=== PATIENT | female | born 1970 | race Hispanic/Latino ===

== ENCOUNTER 2020-09-17 08:51 | Inpatient (IN) | payer MEDICAID ==
[2020-09-17 14:19] LABS: Alanine Aminotransferase 22 units/L (7-56); Albumin 3.9 g/dL (3.9-5); BUN/Creatinine Ratio 13; Blood Urea Nitrogen 9 mg/dL (7-17); Calcium 8.1 mg/dL (8.4-10.2); Chol/HDL Ratio 2.47 %; HDL Cholesterol 65 mg/dL (40-59); Hemolysis Index 7; LDL Cholesterol,Direct 91 mg/dL (50-130)
[2020-09-17 14:24] LABS: Basophils # (Auto) 0.1 K/mm3 (0.0-0.1); Basophils % (Auto) 1.2 % (0.0-1.8); Eosinophils # (Auto) 0.1 K/mm3 (0.0-0.4); Eosinophils % (Auto) 1.4 % (0.0-4.3); Hematocrit 38.9 % (30.3-42.9); Hemoglobin 13.1 gm/dl (10.1-14.3); Lymphocytes # (Auto) 1.8 K/mm3 (1.2-5.4); Lymphocytes % (Auto) 29.3 % (13.4-35.0); Mean Corpuscular HGB Conc 34 % (30-34); Mean Corpuscular Volume 96 fl (79-97); Monocytes # (Auto) 0.4 K/mm3 (0.0-0.8); Platelet Count 180 K/mm3 (140-440); Red Blood Count 4.06 M/mm3 (3.65-5.03); Red Cell Distribution Width 13.4 % (13.2-15.2)
[2020-09-17] MEDS: ALPRAZolam 1 MG TAB PO PRN ×2 (16:53→21:03)
[2020-09-17] MEDS ORDERED: FLU VACC QUAD 2020-2021 (6 months +)/PF 60 0.5 ML SYRINGE IM ONE (17:38)
[2020-09-17] MEDS: GABAPENTIN 300 MG CAP PO SCH ×2 (17:52→21:02)
[2020-09-17] MEDS ORDERED: IPRATROPIUM/ALBUTEROL SULFATE 3 ML AMPUL.NEB IH SCH (18:00)
[2020-09-17] MEDS: DIVALPROEX SPRINKLE 125 MG CAP PO SCH (21:02)
[2020-09-17] MEDS: busPIRone 10 MG TAB PO SCH (21:02)
[2020-09-17] MEDS: traZODone 50 MG TAB PO SCH (21:02)
[2020-09-17] MEDS: levETIRAcetam 500 MG TAB PO SCH (21:03)
[2020-09-17] MEDS: metFORMIN 500 MG TAB PO SCH (21:06)
[2020-09-17] MEDS ORDERED: LURASIDONE HCL 80 MG PO SCH (22:00)
[2020-09-18] MEDS: ALPRAZolam 1 MG TAB PO PRN ×3 (02:48→20:22)
--- NOTE | 2020-09-18 08:37 | History and Physical Report ---
GP History & Physical - History of Present Illness Date of admission: 09/17/20 Date of Examination: 09/18/20 Reason for Admission: Failure of Outpatient Treatment, Severe anxiety/depression History of Present Illness: Per nurse note: Super anxious, paranoid, auditory hallucination, was not taking home meds Withdrawing from Methamphetamine Vonnie Sabillon is a 50y/o female patient who states she was admitted because she had been off her meds. The patient says she was paranoid and hallucinating. During my visit with her today, the patient is very anxious. She is rocking back and forth, rubbing her face and crying. She says almost a year ago her son was killed in a MVC. She say "it's so hard for me to deal with." She also says she lost her sister. The patient denies SI/HI, but verbalizes being "severely depressed and very anxious." The patient also says she feels paranoid. The patient says she has a history of "bipolar, schizophrenia, and PTSD." She is verbalizes hearing "a bunch of stuff I can't make out." She also says she sees things, "they are blurry." The patient admits to using methamphetamines. She also says she smokes 2 packs of cigarets a day. She says she quit using alcohol in June. Psychiatric History Diagnoses: Bipolar, PTSD, Schizophrenia Suicidal attempts: Yes Psych admissions: Yes Medications tried: xanax Substance abuse: Methamphetamines Outpatient care: yes Medical history: None reported Family psych history: None reported Social History Marital status: Living arrangements: Alone Highest education: high school Legal history: Denies Employment status: Disabled REVIEW OF SYSTEMS Constitutional: Negative for weight loss ENT: Negative for stridor Respiratory: Negative for cough or hemoptysis All other systems reviewed and are negative MENTAL STATUS EXAMINATION General Appearance and Behavior: Age appropriate, good hygiene, wearing appropriate clothes, good eye contact, very anxious Cooperation: Participating/engaged, but Guarded Psychomotor Behavior: Psychomotor normal Mood:"severely depressed and very anxious" Affect and affective range: congruent with mood. Thought Process: Goal directed Thought Content: hopelessness, helplessness, hallucinations Speech: Normal rate, volume and rhythm Intellectual Functioning: Average Suicidal Ideation: Denies Homicidal Ideation: Denies Hallucinations: A/V Delusions: None elicited Impulse Control: Impaired Insight and Judgment: Limited insight and judgment Memory: Normal Attention: Normal Orientation: Alert, oriented. Assessment and Plan (1) Bipolar Disorder Current Visit: Yes Status: Acute Treatment Plan Patient admitted for inpatient psychiatric evaluation, medication adjustment and close monitoring The patient's behavior, mood, sleep and appetite will be closely monitored. Patient enrolled in individual and group therapeutic sessions and encouraged to attend. Patient provided with a safe and structured environment. Patient's physical health needs will be addressed by the Hospitalist. Hospitalist Consulted Labs including CBC, CMP, Lipid profile and Hemoglobin A1C levels ordered for baseline reference Social Assessment will be completed and the Sueding Machine Operator will work with patient and family to ensure a suitable and safe disposition Medication adjustment will be made as clinically indicated Continued home medications Started Risperidone 0.25mg po BID (the hospital does not have latuda) Usual Wellness Hindu/Preservation: - Start Trazodone 50 mg po QHS & 50 mg po QHS PRN between 10 PM & 2 AM for insomnia - Start Melatonin 5 mg po QHS to promote circadian rhythm - Start Waterloo-3 for brain health, reduce impulsivity, and as adjunctive treatment for mood disorder, continue upon discharge given overall benefits. - Start B1 prophylaxis with 200 mg po for 5 days The patient agreed on the treatment plan, understood the risk, benefit, alternative treatment, potential consequence of no treatment, and gave informed consent. Estimated days: 7 Post hospital care: primary care provider, psychiatric provider Legal Status: Voluntary Reaction to Hospitalization: Accepting Medications and Allergies Allergies Allergy/AdvReac Type Severity Reaction Status Date / Time No Known Allergies Allergy Verified 09/17/20 13:05 Home Medications Medication Instructions Recorded Confirmed Last Taken Type Metformin HCl [Glucophage] 500 mg PO BID 05/30/18 09/17/20 Unknown History levETIRAcetam [Keppra TAB] 500 mg PO BID #60 tablet 05/30/18 09/17/20 Unknown Rx ALPRAZolam [Xanax TAB] 1 mg PO QID PRN 09/17/20 09/17/20 Unknown History Divalproex Sprinkle [DepaKOTE 250 mg PO TID 09/17/20 09/17/20 Unknown History SPRINKLE] Folic Acid [Folvite] 1 mg PO QDAY 09/17/20 09/17/20 Unknown History Gabapentin 300 mg PO QID 09/17/20 09/17/20 Unknown History Ipratropium/Albuter (Nf) 2 puff IH QID 09/17/20 09/17/20 Unknown History [Combivent (Nf)] Lurasidone HCl [Latuda] 80 mg PO BID 09/17/20 09/17/20 Unknown History Nicotine [Habitrol] 14 gm TRANSDERMA DAILY MDD Smoker 09/17/20 09/17/20 09/17/20 History busPIRone [Buspar] 10 mg PO TID 09/17/20 09/17/20 Unknown History traZODone [Desyrel] 50 mg PO QHS 09/17/20 09/17/20 Unknown History Active Meds: Active Medications Albuterol/Ipratropium (Ipratropium/Albuterol Sulfate 3 Ml Ampul.Neb) 1 ampul IH QID [facility] Alprazolam (Alprazolam 1 Mg Tab) 1 mg PO QID PRN PRN Reason: Anxiety Last Admin: 09/18/20 02:48 Dose: 1 mg Documented by: Buspirone HCl (Buspirone 10 Mg Tab) 10 mg PO TID [facility] Last Admin: 09/17/20 21:02 Dose: 10 mg Documented by: Divalproex Sodium (Divalproex Sprinkle 125 Mg Cap) 250 mg PO TID [facility] Last Admin: 09/17/20 21:02 Dose: 250 mg Documented by: Folic Acid (Folic Acid 1 Mg Tab) 1 mg PO QDAY [facility] Gabapentin (Gabapentin 300 Mg Cap) 300 mg PO QID [facility] Last Admin: 09/17/20 21:02 Dose: 300 mg Documented by: Levetiracetam (Levetiracetam 500 Mg Tab) 500 mg PO BID [facility] Last Admin: 09/17/20 21:03 Dose: 500 mg Documented by: Metformin HCl (Metformin 500 Mg Tab) 500 mg PO BID [facility] Last Admin: 09/17/20 21:06 Dose: 500 mg Documented by: Miscellaneous Medication (Lurasidone Hcl [Latuda]) 80 mg PO BID [facility] Nicotine (Nicotine 14 Mg/24 Hr Patch) 14 mg TD DAILY [facility] Trazodone HCl (Trazodone 50 Mg Tab) 50 mg PO QHS [facility] Last Admin: 09/17/20 21:02 Dose: 50 mg Documented by: Results - Results Labs/Vitals: Laboratory Last Values WBC 6.0 K/mm3 (4.5-11.0) 09/17/20 13:28 RBC 4.06 M/mm3 (3.65-5.03) 09/17/20 13:28 Hgb 13.1 gm/dl (10.1-14.3) 09/17/20 13:28 Hct 38.9 % (30.3-42.9) 09/17/20 13:28 MCV 96 fl (79-97) 09/17/20 13:28 MCH 32 pg (28-32) 09/17/20 13:28 MCHC 34 % (30-34) 09/17/20 13:28 RDW 13.4 % (13.2-15.2) 09/17/20 13:28 Plt Count 180 K/mm3 (140-440) 09/17/20 13:28 Lymph % (Auto) 29.3 % (13.4-35.0) 09/17/20 13:28 Reeves % (Auto) 7.0 % (0.0-7.3) 09/17/20 13:28 Eos % (Auto) 1.4 % (0.0-4.3) 09/17/20 13:28 Baso % (Auto) 1.2 % (0.0-1.8) 09/17/20 13:28 Lymph # (Auto) 1.8 K/mm3 (1.2-5.4) 09/17/20 13:28 Reeves # (Auto) 0.4 K/mm3 (0.0-0.8) 09/17/20 13:28 Eos # (Auto) 0.1 K/mm3 (0.0-0.4) 09/17/20 13:28 Baso # (Auto) 0.1 K/mm3 (0.0-0.1) 09/17/20 13:28 Seg Neutrophils % 61.1 % (40.0-70.0) 09/17/20 13:28 Seg Neutrophils # 3.7 K/mm3 (1.8-7.7) 09/17/20 13:28 Sodium 141 mmol/L (137-145) 09/17/20 13:28 Potassium 4.2 mmol/L (3.6-5.0) 09/17/20 13:28 Chloride 111.3 mmol/L (98-107) H 09/17/20 13:28 Carbon Dioxide 23 mmol/L (22-30) 09/17/20 13:28 Anion Gap 11 mmol/L 09/17/20 13:28 BUN 9 mg/dL (7-17) 09/17/20 13:28 Creatinine 0.7 mg/dL (0.6-1.2) 09/17/20 13:28 Estimated GFR > 60 ml/min 09/17/20 13:28 BUN/Creatinine Ratio 13 % 09/17/20 13:28 Glucose 82 mg/dL (65-100) 09/17/20 13:28 POC Glucose 81 mg/dL (70-105) 09/17/20 13:35 Hemoglobin A1c 5.8 % (4-6) 09/17/20 13:28 Calcium 8.1 mg/dL (8.4-10.2) L 09/17/20 13:28 Total Bilirubin 0.30 mg/dL (0.1-1.2) 09/17/20 13:28 AST 38 units/L (5-40) 09/17/20 13:28 ALT 22 units/L (7-56) 09/17/20 13:28 Alkaline Phosphatase 69 units/L (35-129) 09/17/20 13:28 Total Protein 6.3 g/dL (6.3-8.2) 09/17/20 13:28 Albumin 3.9 g/dL (3.9-5) 09/17/20 13:28 Albumin/Globulin Ratio 1.6 % 09/17/20 13:28 Triglycerides 135 mg/dL (2-149) 09/17/20 13:28 Cholesterol 161 mg/dL (50-199) 09/17/20 13:28 LDL Cholesterol Direct 91 mg/dL (50-130) 09/17/20 13:28 HDL Cholesterol 65 mg/dL (40-59) H 09/17/20 13:28 Cholesterol/HDL Ratio 2.47 % 09/17/20 13:28 TSH 0.588 mlU/mL (0.270-4.200) 09/17/20 13:28 Last Vital Signs Temp 97.9 F 09/17/20 22:00 Pulse 72 09/17/20 22:00 Resp 15 09/17/20 22:00 BP 144/113 09/17/20 22:00 Pulse Ox 97 09/17/20 22:00 Physical Examination - Constitutional Vitals: Vital Signs Temp Pulse Resp BP Pulse Ox 97.9 F 72 15 144/113 97 09/17/20 22:00 09/17/20 22:00 09/17/20 22:00 09/17/20 22:00 09/17/20 22:00 Temperature -Last 24 Hours Temperature 97.9 F Mental Status Exam - Vital signs Last Vital Signs Temp 97.9 F 09/17/20 22:00 Pulse 72 09/17/20 22:00 Resp 15 09/17/20 22:00 BP 144/113 09/17/20 22:00 Pulse Ox 97 09/17/20 22:00 Physician Certification - Certification Statement Physician Certification Statement: This is an acknowledgement statement that VONNIE SABILLON is a 50 year old F who requires inpatient psychiatric admission for treatment which could reasonably be expected to improve the patient's condition for Estimated period of time patient will need to remain in the hospital: [ ] Plan for post-hospital care: [ ]
[2020-09-18] MEDS: GABAPENTIN 300 MG CAP PO SCH ×4 (09:38→21:01)
[2020-09-18] MEDS: DIVALPROEX SPRINKLE 125 MG CAP PO SCH ×3 (09:38→20:23)
[2020-09-18] MEDS: levETIRAcetam 500 MG TAB PO SCH ×2 (09:38→21:01)
[2020-09-18] MEDS: FOLIC ACID 1 MG TAB PO SCH (09:39)
[2020-09-18] MEDS: NICOTINE 21 MG/24 HR PATCH TD SCH (09:39)
[2020-09-18] MEDS: metFORMIN 500 MG TAB PO SCH ×2 (09:39→21:01)
[2020-09-18] MEDS: busPIRone 10 MG TAB PO SCH ×3 (09:39→20:23)
[2020-09-18] MEDS ORDERED: NICOTINE 14 MG/24 HR PATCH TD SCH (10:00)
[2020-09-18] MEDS: risperiDONE 0.25 MG TAB PO SCH ×2 (12:58→21:01)
[2020-09-18 19:29] LABS: Bilirubin,Urine NEG (Negative); Blood,Urine NEG (Negative); Color,Urine Straw (Yellow); Protein,Urine <15 mg/dL mg/dL (Negative); Urobilinogen,Urine < 2.0 mg/dL (<2.0)
[2020-09-18] MEDS: traZODone 50 MG TAB PO SCH (21:01)
[2020-09-19] MEDS: ALPRAZolam 1 MG TAB PO PRN ×3 (04:54→21:29)
--- NOTE | 2020-09-19 07:44 | Consultation ---
History of Present Illness - Reason for Consult Consult date: 09/18/20 Medical management Requesting physician: BRAD MARIE - History of Present Illness Patricia Sabillon is a 50y/o female patient who states she was admitted because she had been off her meds. The patient says she was paranoid and hallucinating. During my visit with her today, the patient is very anxious. She is rocking back and forth, rubbing her face and crying. She says almost a year ago her son was killed in a MVC. She say "it's so hard for me to deal with." She also says she lost her sister. The patient denies SI/HI, but verbalizes being "severely depressed and very anxious." The patient also says she feels paranoid. The patient says she has a history of "bipolar, schizophrenia, and PTSD." She is verbalizes hearing "a bunch of stuff I can't make out." She also says she sees things, "they are blurry." The patient admits to using methamphetamines. She also says she smokes 2 packs of cigarets a day. She says she quit using alcohol in June. Psychiatric History Diagnoses: Bipolar, PTSD, Schizophrenia Suicidal attempts: Yes Psych admissions: Yes Medications tried: xanax Substance abuse: Methamphetamines Outpatient care: yes Medical history: COPD Family psych history: None reported Social History Marital status: Living arrangements: Alone Highest education: high school Legal history: Denies Employment status: Disabled REVIEW OF SYSTEMS Constitutional: Negative for weight loss ENT: Negative for stridor Respiratory: Negative for cough or hemoptysis All other systems reviewed and are negative Medications and Allergies Allergies Allergy/AdvReac Type Severity Reaction Status Date / Time No Known Allergies Allergy Verified 09/17/20 13:05 Home Medications Medication Instructions Recorded Confirmed Last Taken Type Metformin HCl [Glucophage] 500 mg PO BID 05/30/18 09/17/20 Unknown History levETIRAcetam [Keppra TAB] 500 mg PO BID #60 tablet 05/30/18 09/17/20 Unknown Rx ALPRAZolam [Xanax TAB] 1 mg PO QID PRN 09/17/20 09/17/20 Unknown History Divalproex Sprinkle [DepaKOTE 250 mg PO TID 09/17/20 09/17/20 Unknown History SPRINKLE] Folic Acid [Folvite] 1 mg PO QDAY 09/17/20 09/17/20 Unknown History Gabapentin 300 mg PO QID 09/17/20 09/17/20 Unknown History Ipratropium/Albuter (Nf) 2 puff IH QID 09/17/20 09/17/20 Unknown History [Combivent (Nf)] Lurasidone HCl [Latuda] 80 mg PO BID 09/17/20 09/17/20 Unknown History Nicotine [Habitrol] 14 gm TRANSDERMA DAILY MDD Smoker 09/17/20 09/17/20 09/17/20 History busPIRone [Buspar] 10 mg PO TID 09/17/20 09/17/20 Unknown History traZODone [Desyrel] 50 mg PO QHS 09/17/20 09/17/20 Unknown History Active Meds: Active Medications Albuterol/Ipratropium (Ipratropium/Albuterol Sulfate 3 Ml Ampul.Neb) 1 ampul IH QID [facility] Alprazolam (Alprazolam 1 Mg Tab) 1 mg PO QID PRN PRN Reason: Anxiety Last Admin: 09/19/20 04:54 Dose: 1 mg Documented by: Buspirone HCl (Buspirone 10 Mg Tab) 10 mg PO TID [facility] Last Admin: 09/18/20 20:23 Dose: 10 mg Documented by: Divalproex Sodium (Divalproex Sprinkle 125 Mg Cap) 250 mg PO TID [facility] Last Admin: 09/18/20 20:23 Dose: 250 mg Documented by: Folic Acid (Folic Acid 1 Mg Tab) 1 mg PO QDAY [facility] Last Admin: 09/18/20 09:39 Dose: 1 mg Documented by: Gabapentin (Gabapentin 300 Mg Cap) 300 mg PO QID [facility] Last Admin: 09/18/20 21:01 Dose: 300 mg Documented by: Levetiracetam (Levetiracetam 500 Mg Tab) 500 mg PO BID [facility] Last Admin: 09/18/20 21:01 Dose: 500 mg Documented by: Metformin HCl (Metformin 500 Mg Tab) 500 mg PO BIDDIAB [facility] Miscellaneous Medication (Lurasidone Hcl [Latuda]) 80 mg PO BID [facility] Nicotine (Nicotine 21 Mg/24 Hr Patch) 21 mg TD QDAY [facility] Last Admin: 09/18/20 09:39 Dose: 21 mg Documented by: Risperidone (Risperidone 0.25 Mg Tab) 0.25 mg PO BID [facility] Last Admin: 09/18/20 21:01 Dose: 0.25 mg Documented by: Trazodone HCl (Trazodone 50 Mg Tab) 50 mg PO QHS [facility] Last Admin: 09/18/20 21:01 Dose: 50 mg Documented by: Exam - Constitutional Vitals: Temp Pulse Resp BP Pulse Ox 98.1 F 79 15 125/77 96 09/18/20 21:00 09/18/20 21:00 09/18/20 21:00 09/18/20 21:00 09/18/20 21:00 General appearance: Present: no acute distress, well-nourished - EENT Eyes: Present: PERRL ENT: hearing intact, clear oral mucosa - Neck Neck: Present: supple, normal ROM - Respiratory Respiratory effort: normal Respiratory: bilateral: CTA - Cardiovascular Heart rate: 78 Rhythm: regular Heart Sounds: Present: S1 & S2. Absent: rub, click - Extremities Extremities: no ischemia, pulses intact, pulses symmetrical, No edema Peripheral Pulses: within normal limits - Abdominal General gastrointestinal: Present: soft, non-tender, non-distended, normal bowel sounds Female genitourinary: Present: normal - Integumentary Integumentary: Present: clear, warm, dry - Musculoskeletal Musculoskeletal: gait normal, strength equal bilaterally - Psychiatric Psychiatric: appropriate mood/affect, intact judgment & insight - Neurologic Neurologic: CNII-XII intact, moves all extremities Results - Labs CBC & Chem 7: 09/17/20 13:28 09/17/20 13:28 Labs: Abnormal lab results 09/18/20 Range/Units 07:33 POC Glucose 110 H (70-105) mg/dL Assessment and Plan - Patient Problems (1) COPD (chronic obstructive pulmonary disease) Current Visit: Yes Status: Chronic Qualifiers: COPD type: chronic bronchitis Plan to address problem: Ventolin inhaler 2 puffs 4 times daily as needed (2) Nicotine dependence Current Visit: Yes Status: Chronic Qualifiers: Nicotine product type: cigarettes Plan to address problem: Patient counseled about smoking cessation NicoDerm patch initiated (3) DVT prophylaxis Current Visit: Yes Status: Acute Plan to address problem: Heparin 5000 every 12 and GI prophylaxis
[2020-09-19] MEDS ORDERED: ALBUTEROL 8.5 GM MDI INHALATION IH PRN (07:53)
[2020-09-19] MEDS ORDERED: ALBUTEROL 2.5 MG/3 ML NEBU IH PRN ×2 (09:00→11:29)
[2020-09-19] MEDS: DIVALPROEX SPRINKLE 125 MG CAP PO SCH ×3 (09:19→20:46)
[2020-09-19] MEDS: levETIRAcetam 500 MG TAB PO SCH ×2 (09:20→21:30)
[2020-09-19] MEDS: busPIRone 10 MG TAB PO SCH ×3 (09:20→20:45)
[2020-09-19] MEDS: FOLIC ACID 1 MG TAB PO SCH (09:20)
[2020-09-19] MEDS: NICOTINE 21 MG/24 HR PATCH TD SCH (09:20)
[2020-09-19] MEDS: metFORMIN 500 MG TAB PO SCH ×2 (09:21→17:48)
[2020-09-19] MEDS: GABAPENTIN 300 MG CAP PO SCH ×4 (09:21→21:30)
[2020-09-19] MEDS: HEPARIN 5,000 UNIT/1 ML VIAL SUB-Q SCH ×2 (09:21→21:30)
[2020-09-19] MEDS: risperiDONE 0.25 MG TAB PO SCH ×2 (09:21→21:30)
--- NOTE | 2020-09-19 10:22 | Progress Note ---
Subjective Date of service: 09/19/20 Principal diagnosis: Bipolar Disorder Subjective Comment: The patient was seen today. She is very anxious. She is asking why her anxiety medication was decreased. Informed the patient that her medication was not decreased. She says that's what was told to her. She says my anxiety is "my biggest problem. When I get sick that starts my mind to racing." The patient denies SI/HI or hallucinations of any kind. She says "it's when I get really anxious." REVIEW OF SYSTEMS Constitutional: Negative for weight loss ENT: Negative for stridor Respiratory: Negative for cough or hemoptysis All other systems reviewed and are negative MENTAL STATUS EXAMINATION General Appearance and Behavior: Age appropriate, good hygiene, wearing appropriate clothes, good eye contact, very anxious Cooperation: Participating/engaged, but Guarded Psychomotor Behavior: Psychomotor normal Mood:"severely depressed and very anxious" Affect and affective range: congruent with mood. Thought Process: Goal directed Thought Content: hopelessness, helplessness, hallucinations Speech: Normal rate, volume and rhythm Intellectual Functioning: Average Suicidal Ideation: Denies Homicidal Ideation: Denies Hallucinations: A/V Delusions: None elicited Impulse Control: Impaired Insight and Judgment: Limited insight and judgment Memory: Normal Attention: Normal Orientation: Alert, oriented. Assessment and Plan (1) Bipolar Disorder (2) Generalized Anxiety Disorder Current Visit: Yes Status: Acute Treatment Plan Patient admitted for inpatient psychiatric evaluation, medication adjustment and close monitoring The patient's behavior, mood, sleep and appetite will be closely monitored. Patient enrolled in individual and group therapeutic sessions and encouraged to attend. Patient provided with a safe and structured environment. Patient's physical health needs will be addressed by the Hospitalist. Hospitalist Consulted Labs including CBC, CMP, Lipid profile and Hemoglobin A1C levels ordered for baseline reference Social Assessment will be completed and the Beef Grinder will work with patient and family to ensure a suitable and safe disposition Medication adjustment will be made as clinically indicated Increased Busar 15mg po TID Usual Wellness Sabianism/Preservation: - Start Trazodone 50 mg po QHS & 50 mg po QHS PRN between 10 PM & 2 AM for insomnia - Start Melatonin 5 mg po QHS to promote circadian rhythm - Start [place]-3 for brain health, reduce impulsivity, and as adjunctive treatment for mood disorder, continue upon discharge given overall benefits. - Start B1 prophylaxis with 200 mg po for 5 days The patient agreed on the treatment plan, understood the risk, benefit, alternative treatment, potential consequence of no treatment, and gave informed consent. Estimated days: 2 Post hospital care: primary care provider, psychiatric provider Medications and Allergies Allergies Allergy/AdvReac Type Severity Reaction Status Date / Time No Known Allergies Allergy Verified 09/17/20 13:05 Home Medications Medication Instructions Recorded Confirmed Last Taken Type Metformin HCl [Glucophage] 500 mg PO BID 05/30/18 09/17/20 Unknown History levETIRAcetam [Keppra TAB] 500 mg PO BID #60 tablet 05/30/18 09/17/20 Unknown Rx ALPRAZolam [Xanax TAB] 1 mg PO QID PRN 09/17/20 09/17/20 Unknown History Divalproex Sprinkle [DepaKOTE 250 mg PO TID 09/17/20 09/17/20 Unknown History SPRINKLE] Folic Acid [Folvite] 1 mg PO QDAY 09/17/20 09/17/20 Unknown History Gabapentin 300 mg PO QID 09/17/20 09/17/20 Unknown History Ipratropium/Albuter (Nf) 2 puff IH QID 09/17/20 09/17/20 Unknown History [Combivent (Nf)] Lurasidone HCl [Latuda] 80 mg PO BID 09/17/20 09/17/20 Unknown History Nicotine [Habitrol] 14 gm TRANSDERMA DAILY MDD Smoker 09/17/20 09/17/20 09/17/20 History busPIRone [Buspar] 10 mg PO TID 09/17/20 09/17/20 Unknown History traZODone [Desyrel] 50 mg PO QHS 09/17/20 09/17/20 Unknown History Active Meds: Active Medications Albuterol (Albuterol 2.5 Mg/3 Ml Nebu) 2.5 mg IH Q4HRT PRN PRN Reason: Shortness Of Breath Albuterol/Ipratropium (Ipratropium/Albuterol Sulfate 3 Ml Ampul.Neb) 1 ampul IH QID [facility]AVI Alprazolam (Alprazolam 1 Mg Tab) 1 mg PO QID PRN PRN Reason: Anxiety Last Admin: 09/19/20 04:54 Dose: 1 mg Documented by: Buspirone HCl (Buspirone 10 Mg Tab) 10 mg PO TID [facility] Last Admin: 09/19/20 09:20 Dose: 10 mg Documented by: Divalproex Sodium (Divalproex Sprinkle 125 Mg Cap) 250 mg PO TID [facility] Last Admin: 09/19/20 09:19 Dose: 250 mg Documented by: Folic Acid (Folic Acid 1 Mg Tab) 1 mg PO QDAY [facility] Last Admin: 09/19/20 09:20 Dose: 1 mg Documented by: Gabapentin (Gabapentin 300 Mg Cap) 300 mg PO QID [facility] Last Admin: 09/19/20 09:21 Dose: 300 mg Documented by: Heparin Sodium (Porcine) (Heparin 5,000 Unit/1 Ml Vial) 5,000 unit SUB-Q Q12HR [facility] Last Admin: 09/19/20 09:21 Dose: 5,000 unit Documented by: Levetiracetam (Levetiracetam 500 Mg Tab) 500 mg PO BID [facility] Last Admin: 09/19/20 09:20 Dose: 500 mg Documented by: Metformin HCl (Metformin 500 Mg Tab) 500 mg PO BIDDIAB [facility] Last Admin: 09/19/20 09:21 Dose: 500 mg Documented by: Miscellaneous Medication (Lurasidone Hcl [Latuda]) 80 mg PO BID [facility] Nicotine (Nicotine 21 Mg/24 Hr Patch) 21 mg TD QDAY [facility] Last Admin: 09/19/20 09:20 Dose: 21 mg Documented by: Risperidone (Risperidone 0.25 Mg Tab) 0.25 mg PO BID [facility] Last Admin: 09/19/20 09:21 Dose: 0.25 mg Documented by: Trazodone HCl (Trazodone 50 Mg Tab) 50 mg PO QHS [facility] Last Admin: 09/18/20 21:01 Dose: 50 mg Documented by: Results - Results Labs/Vitals: Laboratory Last Values WBC 6.0 K/mm3 (4.5-11.0) 09/17/20 13:28 RBC 4.06 M/mm3 (3.65-5.03) 09/17/20 13:28 Hgb 13.1 gm/dl (10.1-14.3) 09/17/20 13:28 Hct 38.9 % (30.3-42.9) 09/17/20 13:28 MCV 96 fl (79-97) 09/17/20 13:28 MCH 32 pg (28-32) 09/17/20 13:28 MCHC 34 % (30-34) 09/17/20 13:28 RDW 13.4 % (13.2-15.2) 09/17/20 13:28 Plt Count 180 K/mm3 (140-440) 09/17/20 13:28 Lymph % (Auto) 29.3 % (13.4-35.0) 09/17/20 13:28 [place] % (Auto) 7.0 % (0.0-7.3) 09/17/20 13:28 Eos % (Auto) 1.4 % (0.0-4.3) 09/17/20 13:28 Baso % (Auto) 1.2 % (0.0-1.8) 09/17/20 13:28 Lymph # (Auto) 1.8 K/mm3 (1.2-5.4) 09/17/20 13:28 [place] # (Auto) 0.4 K/mm3 (0.0-0.8) 09/17/20 13:28 Eos # (Auto) 0.1 K/mm3 (0.0-0.4) 09/17/20 13:28 Baso # (Auto) 0.1 K/mm3 (0.0-0.1) 09/17/20 13:28 Seg Neutrophils % 61.1 % (40.0-70.0) 09/17/20 13:28 Seg Neutrophils # 3.7 K/mm3 (1.8-7.7) 09/17/20 13:28 Sodium 141 mmol/L (137-145) 09/17/20 13:28 Potassium 4.2 mmol/L (3.6-5.0) 09/17/20 13:28 Chloride 111.3 mmol/L (98-107) H 09/17/20 13:28 Carbon Dioxide 23 mmol/L (22-30) 09/17/20 13:28 Anion Gap 11 mmol/L 09/17/20 13:28 BUN 9 mg/dL (7-17) 09/17/20 13:28 Creatinine 0.7 mg/dL (0.6-1.2) 09/17/20 13:28 Estimated GFR > 60 ml/min 09/17/20 13:28 BUN/Creatinine Ratio 13 % 09/17/20 13:28 Glucose 82 mg/dL (65-100) 09/17/20 13:28 POC Glucose 114 mg/dL (70-105) H 09/19/20 06:32 Hemoglobin A1c 5.8 % (4-6) 09/17/20 13:28 Calcium 8.1 mg/dL (8.4-10.2) L 09/17/20 13:28 Total Bilirubin 0.30 mg/dL (0.1-1.2) 09/17/20 13:28 AST 38 units/L (5-40) 09/17/20 13:28 ALT 22 units/L (7-56) 09/17/20 13:28 Alkaline Phosphatase 69 units/L (35-129) 09/17/20 13:28 Total Protein 6.3 g/dL (6.3-8.2) 09/17/20 13:28 Albumin 3.9 g/dL (3.9-5) 09/17/20 13:28 Albumin/Globulin Ratio 1.6 % 09/17/20 13:28 Triglycerides 135 mg/dL (2-149) 09/17/20 13:28 Cholesterol 161 mg/dL (50-199) 09/17/20 13:28 LDL Cholesterol Direct 91 mg/dL (50-130) 09/17/20 13:28 HDL Cholesterol 65 mg/dL (40-59) H 09/17/20 13:28 Cholesterol/HDL Ratio 2.47 % 09/17/20 13:28 TSH 0.588 mlU/mL (0.270-4.200) 09/17/20 13:28 Urine Color Straw (Yellow) 09/18/20 09:10 Urine Turbidity Clear (Clear) 09/18/20 09:10 Urine pH 6.0 (5.0-7.0) 09/18/20 09:10 Ur Specific [place] 1.008 (1.003-1.030) 09/18/20 09:10 Urine Protein <15 mg/dl mg/dL (Negative) 09/18/20 09:10 Urine Glucose (UA) Neg mg/dL (Negative) 09/18/20 09:10 Urine Ketones Neg mg/dL (Negative) 09/18/20 09:10 Urine Blood Neg (Negative) 09/18/20 09:10 Urine Nitrite Neg (Negative) 09/18/20 09:10 Urine Bilirubin Neg (Negative) 09/18/20 09:10 Urine Urobilinogen < 2.0 mg/dL (<2.0) 09/18/20 09:10 Ur Leukocyte Esterase Neg (Negative) 09/18/20 09:10 Urine WBC (Auto) 1.0 /HPF (0.0-6.0) 09/18/20 09:10 Urine RBC (Auto) 1.0 /HPF (0.0-6.0) 09/18/20 09:10 U Epithel Cells (Auto) 1.0 /HPF (0-13.0) 09/18/20 09:10 Last Vital Signs Temp 98.9 F 09/19/20 08:57 Pulse 72 09/19/20 08:57 Resp 16 09/19/20 08:57 BP 127/63 09/19/20 08:57 Pulse Ox 93 09/19/20 08:57
[2020-09-19] MEDS ORDERED: IPRATROPIUM/ALBUTEROL SULFATE 3 ML AMPUL.NEB IH SCH (12:00)
[2020-09-19] MEDS: IPRATROPIUM/ALBUTEROL SULFATE 3 ML AMPUL.NEB IH SCH (20:29)
[2020-09-19] MEDS: traZODone 50 MG TAB PO SCH (21:30)
--- NOTE | 2020-09-20 08:43 | Progress Note ---
Subjective Date of service: 09/20/20 Principal diagnosis: Bipolar Disorder Subjective Comment: The patient was seen today. She appears better today. She says her anxiety is not as bad. She says she still has some depression, but states she is a lot better. She denies SI/HI or hallucinations of any kind. Reason for continued inpatient treatment: Will continue to monitor the patient to make sure her medications are effective and she is safe for discharge REVIEW OF SYSTEMS Constitutional: Negative for weight loss ENT: Negative for stridor Respiratory: Negative for cough or hemoptysis All other systems reviewed and are negative MENTAL STATUS EXAMINATION General Appearance and Behavior: Age appropriate, good hygiene, wearing appropriate clothes, good eye contact, very anxious Cooperation: Participating/engaged, but Guarded Psychomotor Behavior: Psychomotor normal Mood: depressed, but a lot better Affect and affective range: congruent with mood. Thought Process: Goal directed Thought Content: None Speech: Normal rate, volume and rhythm Intellectual Functioning: Average Suicidal Ideation: Denies Homicidal Ideation: Denies Hallucinations: Denies Delusions: None elicited Impulse Control: Impaired Insight and Judgment: Limited insight and judgment Memory: Normal Attention: Normal Orientation: Alert, oriented. Assessment and Plan (1) Bipolar Disorder (2) Generalized Anxiety Disorder Current Visit: Yes Status: Acute Treatment Plan Patient admitted for inpatient psychiatric evaluation, medication adjustment and close monitoring The patient's behavior, mood, sleep and appetite will be closely monitored. Patient enrolled in individual and group therapeutic sessions and encouraged to attend. Patient provided with a safe and structured environment. Patient's physical health needs will be addressed by the Hospitalist. Hospitalist Consulted Labs including CBC, CMP, Lipid profile and Hemoglobin A1C levels ordered for baseline reference Social Assessment will be completed and the Car Mechanic Helper will work with patient and family to ensure a suitable and safe disposition Medication adjustment will be made as clinically indicated Increased Busar 15mg po TID yesterday No changes today Usual Wellness Hindu/Preservation: - Start Trazodone 50 mg po QHS & 50 mg po QHS PRN between 10 PM & 2 AM for insomnia - Start Melatonin 5 mg po QHS to promote circadian rhythm - Start [place]-3 for brain health, reduce impulsivity, and as adjunctive tr eatment for mood disorder, continue upon discharge given overall benefits. - Start B1 prophylaxis with 200 mg po for 5 days The patient agreed on the treatment plan, understood the risk, benefit, al ternative treatment, potential consequence of no treatment, and gave informed consent. Estimated days: 2 Post hospital care: primary care provider, psychiatric provider Medications and Allergies Allergies Allergy/AdvReac Type Severity Reaction Status Date / Time No Known Allergies Allergy Verified 09/17/20 13:05 Home Medications Medication Instructions Recorded Confirmed Last Taken Type Metformin HCl [Glucophage] 500 mg PO BID 05/30/18 09/17/20 Unknown History levETIRAcetam [Keppra TAB] 500 mg PO BID #60 tablet 05/30/18 09/17/20 Unknown Rx ALPRAZolam [Xanax TAB] 1 mg PO QID PRN 09/17/20 09/17/20 Unknown History Divalproex Sprinkle [DepaKOTE 250 mg PO TID 09/17/20 09/17/20 Unknown History SPRINKLE] Folic Acid [Folvite] 1 mg PO QDAY 09/17/20 09/17/20 Unknown History Gabapentin 300 mg PO QID 09/17/20 09/17/20 Unknown History Ipratropium/Albuter (Nf) 2 puff IH QID 09/17/20 09/17/20 Unknown History [Combivent (Nf)] Lurasidone HCl [Latuda] 80 mg PO BID 09/17/20 09/17/20 Unknown History Nicotine [Habitrol] 14 gm TRANSDERMA DAILY MDD Smoker 09/17/20 09/17/20 09/17/20 History busPIRone [Buspar] 10 mg PO TID 09/17/20 09/17/20 Unknown History traZODone [Desyrel] 50 mg PO QHS 09/17/20 09/17/20 Unknown History Active Meds: Active Medications Albuterol (Albuterol 2.5 Mg/3 Ml Nebu) 2.5 mg IH Q4HRT PRN PRN Reason: Shortness Of Breath Albuterol/Ipratropium (Ipratropium/Albuterol Sulfate 3 Ml Ampul.Neb) 1 ampul IH BIDRT [facility] Last Admin: 09/19/20 20:29 Dose: 1 ampul Documented by: Alprazolam (Alprazolam 1 Mg Tab) 1 mg PO QID PRN PRN Reason: Anxiety Last Admin: 09/19/20 21:29 Dose: 1 mg Documented by: Buspirone HCl (Buspirone 10 Mg Tab) 15 mg PO TID [facility] Last Admin: 09/19/20 20:45 Dose: 15 mg Documented by: Divalproex Sodium (Divalproex Sprinkle 125 Mg Cap) 250 mg PO TID [facility] Last Admin: 09/19/20 20:46 Dose: 250 mg Documented by: Folic Acid (Folic Acid 1 Mg Tab) 1 mg PO QDAY [facility] Last Admin: 09/19/20 09:20 Dose: 1 mg Documented by: Gabapentin (Gabapentin 300 Mg Cap) 300 mg PO QID [facility] Last Admin: 09/19/20 21:30 Dose: 300 mg Documented by: Heparin Sodium (Porcine) (Heparin 5,000 Unit/1 Ml Vial) 5,000 unit SUB-Q Q12HR [facility] Last Admin: 09/19/20 21:30 Dose: 5,000 unit Documented by: Levetiracetam (Levetiracetam 500 Mg Tab) 500 mg PO BID [facility] Last Admin: 09/19/20 21:30 Dose: 500 mg Documented by: Metformin HCl (Metformin 500 Mg Tab) 500 mg PO BIDDIAB [facility] Last Admin: 09/19/20 17:48 Dose: 500 mg Documented by: Miscellaneous Medication (Lurasidone Hcl [Latuda]) 80 mg PO BID [facility] Nicotine (Nicotine 21 Mg/24 Hr Patch) 21 mg TD QDAY [facility] Last Admin: 09/19/20 09:20 Dose: 21 mg Documented by: Risperidone (Risperidone 0.25 Mg Tab) 0.25 mg PO BID [facility] Last Admin: 09/19/20 21:30 Dose: 0.25 mg Documented by: Trazodone HCl (Trazodone 50 Mg Tab) 50 mg PO QHS [facility] Last Admin: 09/19/20 21:30 Dose: 50 mg Documented by: Results - Results Labs/Vitals: Laboratory Last Values WBC 6.0 K/mm3 (4.5-11.0) 09/17/20 13:28 RBC 4.06 M/mm3 (3.65-5.03) 09/17/20 13:28 Hgb 13.1 gm/dl (10.1-14.3) 09/17/20 13:28 Hct 38.9 % (30.3-42.9) 09/17/20 13:28 MCV 96 fl (79-97) 09/17/20 13:28 MCH 32 pg (28-32) 09/17/20 13:28 MCHC 34 % (30-34) 09/17/20 13:28 RDW 13.4 % (13.2-15.2) 09/17/20 13:28 Plt Count 180 K/mm3 (140-440) 09/17/20 13:28 Lymph % (Auto) 29.3 % (13.4-35.0) 09/17/20 13:28 [place] % (Auto) 7.0 % (0.0-7.3) 09/17/20 13:28 Eos % (Auto) 1.4 % (0.0-4.3) 09/17/20 13:28 Baso % (Auto) 1.2 % (0.0-1.8) 09/17/20 13:28 Lymph # (Auto) 1.8 K/mm3 (1.2-5.4) 09/17/20 13:28 [place] # (Auto) 0.4 K/mm3 (0.0-0.8) 09/17/20 13:28 Eos # (Auto) 0.1 K/mm3 (0.0-0.4) 09/17/20 13:28 Baso # (Auto) 0.1 K/mm3 (0.0-0.1) 09/17/20 13:28 Seg Neutrophils % 61.1 % (40.0-70.0) 09/17/20 13:28 Seg Neutrophils # 3.7 K/mm3 (1.8-7.7) 09/17/20 13:28 Sodium 141 mmol/L (137-145) 09/17/20 13:28 Potassium 4.2 mmol/L (3.6-5.0) 09/17/20 13:28 Chloride 111.3 mmol/L (98-107) H 09/17/20 13:28 Carbon Dioxide 23 mmol/L (22-30) 09/17/20 13:28 Anion Gap 11 mmol/L 09/17/20 13:28 BUN 9 mg/dL (7-17) 09/17/20 13:28 Creatinine 0.7 mg/dL (0.6-1.2) 09/17/20 13:28 Estimated GFR > 60 ml/min 09/17/20 13:28 BUN/Creatinine Ratio 13 % 09/17/20 13:28 Glucose 82 mg/dL (65-100) 09/17/20 13:28 POC Glucose 70 mg/dL (70-105) 09/20/20 06:29 Hemoglobin A1c 5.8 % (4-6) 09/17/20 13:28 Calcium 8.1 mg/dL (8.4-10.2) L 09/17/20 13:28 Total Bilirubin 0.30 mg/dL (0.1-1.2) 09/17/20 13:28 AST 38 units/L (5-40) 09/17/20 13:28 ALT 22 units/L (7-56) 09/17/20 13:28 Alkaline Phosphatase 69 units/L (35-129) 09/17/20 13:28 Total Protein 6.3 g/dL (6.3-8.2) 09/17/20 13:28 Albumin 3.9 g/dL (3.9-5) 09/17/20 13:28 Albumin/Globulin Ratio 1.6 % 09/17/20 13:28 Triglycerides 135 mg/dL (2-149) 09/17/20 13:28 Cholesterol 161 mg/dL (50-199) 09/17/20 13:28 LDL Cholesterol Direct 91 mg/dL (50-130) 09/17/20 13:28 HDL Cholesterol 65 mg/dL (40-59) H 09/17/20 13:28 Cholesterol/HDL Ratio 2.47 % 09/17/20 13:28 TSH 0.588 mlU/mL (0.270-4.200) 09/17/20 13:28 Urine Color Straw (Yellow) 09/18/20 09:10 Urine Turbidity Clear (Clear) 09/18/20 09:10 Urine pH 6.0 (5.0-7.0) 09/18/20 09:10 Ur Specific [place] 1.008 (1.003-1.030) 09/18/20 09:10 Urine Protein <15 mg/dl mg/dL (Negative) 09/18/20 09:10 Urine Glucose (UA) Neg mg/dL (Negative) 09/18/20 09:10 Urine Ketones Neg mg/dL (Negative) 09/18/20 09:10 Urine Blood Neg (Negative) 09/18/20 09:10 Urine Nitrite Neg (Negative) 09/18/20 09:10 Urine Bilirubin Neg (Negative) 09/18/20 09:10 Urine Urobilinogen < 2.0 mg/dL (<2.0) 09/18/20 09:10 Ur Leukocyte Esterase Neg (Negative) 09/18/20 09:10 Urine WBC (Auto) 1.0 /HPF (0.0-6.0) 09/18/20 09:10 Urine RBC (Auto) 1.0 /HPF (0.0-6.0) 09/18/20 09:10 U Epithel Cells (Auto) 1.0 /HPF (0-13.0) 09/18/20 09:10 Last Vital Signs Temp 98.4 F 09/19/20 19:35 Pulse 68 09/19/20 20:26 Resp 16 09/19/20 20:26 BP 112/77 09/19/20 19:35 Pulse Ox 97 09/19/20 19:35
[2020-09-20] MEDS: IPRATROPIUM/ALBUTEROL SULFATE 3 ML AMPUL.NEB IH SCH ×2 (08:52→22:03)
[2020-09-20] MEDS: risperiDONE 0.25 MG TAB PO SCH ×2 (09:01→21:14)
[2020-09-20] MEDS: GABAPENTIN 300 MG CAP PO SCH ×4 (09:01→21:14)
[2020-09-20] MEDS: NICOTINE 21 MG/24 HR PATCH TD SCH (09:01)
[2020-09-20] MEDS: levETIRAcetam 500 MG TAB PO SCH ×2 (09:02→21:14)
[2020-09-20] MEDS: busPIRone 10 MG TAB PO SCH ×3 (09:02→20:55)
[2020-09-20] MEDS: DIVALPROEX SPRINKLE 125 MG CAP PO SCH ×3 (09:02→20:55)
[2020-09-20] MEDS: metFORMIN 500 MG TAB PO SCH ×2 (09:02→17:03)
[2020-09-20] MEDS: FOLIC ACID 1 MG TAB PO SCH (09:02)
[2020-09-20] MEDS: HEPARIN 5,000 UNIT/1 ML VIAL SUB-Q SCH ×2 (09:03→21:14)
[2020-09-20] MEDS: ALPRAZolam 1 MG TAB PO PRN ×2 (15:42→22:15)
--- NOTE | 2020-09-20 20:44 | Progress Note ---
History Interval history: 50 YO Female with Obesity,COPD, Nicotine Dependence admitted to [facility] for Psychiatric stabilization. Hospitalist Physical - Constitutional Vitals: Temp Pulse Resp BP Pulse Ox 98.0 F 82 18 117/74 95 09/20/20 09:14 09/20/20 09:14 09/20/20 09:14 09/20/20 09:14 09/20/20 09:14 General appearance: Present: no acute distress, well-nourished Results - Labs CBC & Chem 7: 09/17/20 13:28 09/17/20 13:28 Labs: Laboratory Last Values WBC 6.0 K/mm3 (4.5-11.0) 09/17/20 13:28 RBC 4.06 M/mm3 (3.65-5.03) 09/17/20 13:28 Hgb 13.1 gm/dl (10.1-14.3) 09/17/20 13:28 Hct 38.9 % (30.3-42.9) 09/17/20 13:28 MCV 96 fl (79-97) 09/17/20 13:28 MCH 32 pg (28-32) 09/17/20 13:28 MCHC 34 % (30-34) 09/17/20 13:28 RDW 13.4 % (13.2-15.2) 09/17/20 13:28 Plt Count 180 K/mm3 (140-440) 09/17/20 13:28 Lymph % (Auto) 29.3 % (13.4-35.0) 09/17/20 13:28 [place] % (Auto) 7.0 % (0.0-7.3) 09/17/20 13:28 Eos % (Auto) 1.4 % (0.0-4.3) 09/17/20 13:28 Baso % (Auto) 1.2 % (0.0-1.8) 09/17/20 13:28 Lymph # (Auto) 1.8 K/mm3 (1.2-5.4) 09/17/20 13:28 [place] # (Auto) 0.4 K/mm3 (0.0-0.8) 09/17/20 13:28 Eos # (Auto) 0.1 K/mm3 (0.0-0.4) 09/17/20 13:28 Baso # (Auto) 0.1 K/mm3 (0.0-0.1) 09/17/20 13:28 Seg Neutrophils % 61.1 % (40.0-70.0) 09/17/20 13:28 Seg Neutrophils # 3.7 K/mm3 (1.8-7.7) 09/17/20 13:28 Sodium 141 mmol/L (137-145) 09/17/20 13:28 Potassium 4.2 mmol/L (3.6-5.0) 09/17/20 13:28 Chloride 111.3 mmol/L (98-107) H 09/17/20 13:28 Carbon Dioxide 23 mmol/L (22-30) 09/17/20 13:28 Anion Gap 11 mmol/L 09/17/20 13:28 BUN 9 mg/dL (7-17) 09/17/20 13:28 Creatinine 0.7 mg/dL (0.6-1.2) 09/17/20 13:28 Estimated GFR > 60 ml/min 09/17/20 13:28 BUN/Creatinine Ratio 13 % 09/17/20 13:28 Glucose 82 mg/dL (65-100) 09/17/20 13:28 POC Glucose 70 mg/dL (70-105) 09/20/20 06:29 Hemoglobin A1c 5.8 % (4-6) 09/17/20 13:28 Calcium 8.1 mg/dL (8.4-10.2) L 09/17/20 13:28 Total Bilirubin 0.30 mg/dL (0.1-1.2) 09/17/20 13:28 AST 38 units/L (5-40) 09/17/20 13:28 ALT 22 units/L (7-56) 09/17/20 13:28 Alkaline Phosphatase 69 units/L (35-129) 09/17/20 13:28 Total Protein 6.3 g/dL (6.3-8.2) 09/17/20 13:28 Albumin 3.9 g/dL (3.9-5) 09/17/20 13:28 Albumin/Globulin Ratio 1.6 % 09/17/20 13:28 Triglycerides 135 mg/dL (2-149) 09/17/20 13:28 Cholesterol 161 mg/dL (50-199) 09/17/20 13:28 LDL Cholesterol Direct 91 mg/dL (50-130) 09/17/20 13:28 HDL Cholesterol 65 mg/dL (40-59) H 09/17/20 13:28 Cholesterol/HDL Ratio 2.47 % 09/17/20 13:28 TSH 0.588 mlU/mL (0.270-4.200) 09/17/20 13:28 Urine Color Straw (Yellow) 09/18/20 09:10 Urine Turbidity Clear (Clear) 09/18/20 09:10 Urine pH 6.0 (5.0-7.0) 09/18/20 09:10 Ur Specific [place] 1.008 (1.003-1.030) 09/18/20 09:10 Urine Protein <15 mg/dl mg/dL (Negative) 09/18/20 09:10 Urine Glucose (UA) Neg mg/dL (Negative) 09/18/20 09:10 Urine Ketones Neg mg/dL (Negative) 09/18/20 09:10 Urine Blood Neg (Negative) 09/18/20 09:10 Urine Nitrite Neg (Negative) 09/18/20 09:10 Urine Bilirubin Neg (Negative) 09/18/20 09:10 Urine Urobilinogen < 2.0 mg/dL (<2.0) 09/18/20 09:10 Ur Leukocyte Esterase Neg (Negative) 09/18/20 09:10 Urine WBC (Auto) 1.0 /HPF (0.0-6.0) 09/18/20 09:10 Urine RBC (Auto) 1.0 /HPF (0.0-6.0) 09/18/20 09:10 U Epithel Cells (Auto) 1.0 /HPF (0-13.0) 09/18/20 09:10 Monique/IV: Voiding Method Toilet Active Medications - Current Medications Current Medications: Generic Name Dose Route Start Last Admin Trade Name Freq PRN Reason Stop Dose Admin Albuterol 2.5 mg 09/19/20 11:29 Albuterol 2.5 Mg/3 Ml Nebu IH Q4HRT PRN Shortness Of Breath Albuterol/Ipratropium 1 ampul 09/19/20 20:00 09/20/20 08:52 Ipratropium/Albuterol Sulfate 3 Ml Ampul.Neb IH 1 ampul BIDRT JAVI Administration Alprazolam 1 mg 09/17/20 16:09 09/20/20 15:42 Alprazolam 1 Mg Tab PO 1 mg QID PRN Administration Anxiety Buspirone HCl 15 mg 09/19/20 14:00 09/20/20 14:04 Buspirone 10 Mg Tab PO 15 mg TID [facility]I Administration Divalproex Sodium 250 mg 09/17/20 20:00 09/20/20 14:04 Divalproex Sprinkle 125 Mg Cap PO 250 mg TID [facility]I Administration Folic Acid 1 mg 09/18/20 10:00 09/20/20 09:02 Folic Acid 1 Mg Tab PO 1 mg QDAY J[facility]I Administration Gabapentin 300 mg 09/17/20 18:00 09/20/20 17:03 Gabapentin 300 Mg Cap PO 300 mg QID [facility]I Administration Heparin Sodium (Porcine) 5,000 unit 09/19/20 10:00 09/20/20 09:03 Heparin 5,000 Unit/1 Ml Vial SUB-Q 5,000 unit Q12HR [facility]I Administration Levetiracetam 500 mg 09/17/20 22:00 09/20/20 09:02 Levetiracetam 500 Mg Tab PO 500 mg BID J[facility]I Administration Metformin HCl 500 mg 09/19/20 08:00 09/20/20 17:03 Metformin 500 Mg Tab PO 500 mg BIDDIAB JAVI Administration Miscellaneous Medication 80 mg 09/17/20 22:00 Lurasidone Hcl [Latuda] PO BID JAVI Nicotine 21 mg 09/18/20 10:00 09/20/20 09:01 Nicotine 21 Mg/24 Hr Patch TD 21 mg QDAY JAVI Administration Risperidone 0.25 mg 09/18/20 11:00 09/20/20 09:01 Risperidone 0.25 Mg Tab PO 0.25 mg BID JAVI Administration Trazodone HCl 50 mg 09/17/20 22:00 09/19/20 21:30 Trazodone 50 Mg Tab PO 50 mg QHS JAVI Administration
[2020-09-20] MEDS: traZODone 50 MG TAB PO SCH (21:14)
[2020-09-20 22:56] VITALS: BP 114/73
[2020-09-21] MEDS: busPIRone 10 MG TAB PO SCH ×2 (08:24→13:47)
[2020-09-21] MEDS: DIVALPROEX SPRINKLE 125 MG CAP PO SCH ×2 (08:25→13:47)
[2020-09-21] MEDS: metFORMIN 500 MG TAB PO SCH (08:26)
[2020-09-21] MEDS: ALPRAZolam 1 MG TAB PO PRN (08:27)
[2020-09-21] MEDS: NICOTINE 21 MG/24 HR PATCH TD SCH (09:10)
[2020-09-21] MEDS: HEPARIN 5,000 UNIT/1 ML VIAL SUB-Q SCH (09:10)
[2020-09-21] MEDS: risperiDONE 0.25 MG TAB PO SCH (09:11)
[2020-09-21] MEDS: FOLIC ACID 1 MG TAB PO SCH (09:11)
[2020-09-21] MEDS: levETIRAcetam 500 MG TAB PO SCH (09:11)
[2020-09-21] MEDS: GABAPENTIN 300 MG CAP PO SCH ×2 (10:20→13:48)
[2020-09-21] MEDS: IPRATROPIUM/ALBUTEROL SULFATE 3 ML AMPUL.NEB IH SCH (12:35)
== END 2020-09-21 15:05 | disposition home or self-care (01) | DRG 885 ==
LOC: 3A 08:51 → UNDOADMIN 08:51 → 5A 12:45
PROVIDERS: ADMIT Psychiatry & Neurology Psychiatry; ATTEND Psychiatry & Neurology Psychiatry
DX: F31.9 Bipolar disorder, unspecified (principal); F15.10 Other stimulant abuse, uncomplicated; F43.10 Post-traumatic stress disorder, unspecified; J44.9 Chronic obstructive pulmonary disease, unspecified; R44.0 Auditory hallucinations; E66.9 Obesity, unspecified; F41.9 Anxiety disorder, unspecified; Z79.899 Other long term (current) drug therapy; Z79.891 Long term (current) use of opiate analgesic; Z79.01 Long term (current) use of anticoagulants; Z79.84 Long term (current) use of oral hypoglycemic drugs; Z63.4 Disappearance and death of family member; Z71.6 Tobacco abuse counseling
CPT/HCPCS: 36415; 80053; 80061; 81001; 82962; 83036; 84443; 85025; 90686; 94640; G0378; J1644